=== PATIENT | female | born 1970 | race Caucasian/White ===

== ENCOUNTER → 2016-08-30 | Outpatient (CLI) | payer MEDICARE, MEDICAID ==
[~2016-08-30] MED LIST: ALBUTEROL0.09 MG/A4 IH; ALBUTEROL2.5 MG/3 M IH; AMITRIPTYLINE H25 M1 PO; AMITRIPTYLINE100 MG PO; AMITRIPTYLINE25 M1 PO; AMITRIPTYLINE25 MG PO; ATIVAN 0.50.5 MG/TAB PO; ATORVASTATIN CA40 MG PO; ATROVENT I0.2 MG/1 M IH; ATROVENT INHALE14 GM IH; AZO URINARY PAIN PO; B-1100 MG PO; BACTRIM DS 8001 TA1 PO; BACTRIM DS 8001 TAB PO; CEFTIN500 MG PO; CEPHALEXIN500 M1 PO; CHERATUSSIN AC 15 ML PO; CIPRO 500MG TA500 MG PO; CYCLOBENZAPRINE5 M1 PO; CYMBALTA 60MG60 MG PO; CYMBALTA30 MG PO; CYMBALTA60 MG PO; DEPAKOTE DR500 MG PO; DEPAKOTE500 M1 PO; DIAZEPAM2 MG PO; DOXYCYCLINE 10100 MG PO; EXCEDRIN MIGRA1 EACH PO; FIORICET 325 MG1 TA1 PO; FIORICET 325 MG1 TAB PO; FIORICET1 CAP PO; FIORINAL 50-321 EACH PO; FLOMAX0.4 MG PO; FLONASE NASAL S16 GM NS; GABAPENTIN800 MG PO; HYDROCORTISONE25 MG RC; HYDROXYZINE HCL25 MG PO; HYDROXYZINE10 MG PO; HYOPHEN1 TAB PO; IMITREX 6M6 MG/0.5 M SQ; IMITREX100 MG PO; IMITREX6 MG/0.5 M SC; IMODIUM A-D2 MG PO; IPRATROPIUM BROM3 M1 IH; LEVOTHROID0.075 MG PO; LIPITOR 10MG10 MG PO; LIPITOR 80MG80 MG PO; LIPITOR20 MG PO; MAXALT PO; MEDROL 4MG DOSPA4 MG PO; METRONIDAZOLE500 MG PO; NEURONTIN800 MG/TAB PO; NORCO 325 MG-51 TAB PO; NORCO 325 MG-7.1 TA1 PO; ONDANSETRON ODT8 MG PO; PREDNISONE10 M1 PO; PREDNISONE10 MG PO; PREDNISONE20 M1 PO; PREDNISONE20 MG PO; PROPRANOLOL ER80 MG PO; RELPAX 40MG TAB40 MG; RELPAX 40MG TAB40 MG PO; RELPAX40 MG PO; SEPTRA DS 8001 TAB PO; SKELAXIN800 MG PO; SYMBICORT1 AE3 IH; SYMBICORT1 AE3 INH; SYMBICORT1 AE5 IH; TESSALON PERLE100 M1 PO; TESSALON PERLE100 MG PO; TOPAMAX25 MG PO; TOPAMAX50 MG PO; TRAZODONE HCL100 MG PO; TRAZODONE HYDR100 MG PO; TYLENOL 325MG325 MG PO; TYLENOL W CODEIN1 ML PO; VALIUM2 MG PO; VALIUM5 MG PO; VIBRAMYCIN HYC100 MG PO; VITAMIN D32000 IU PO; WELLBUTRIN SR150 M1 PO; WELLBUTRIN SR200 MG PO; WELLBUTRIN XL150 M2 PO; WELLBUTRIN XL300 M1 PO; WELLBUTRIN100 MG; ZITHROMAX TRI-500 MG PO; ZITHROMAX Z PA250 MG PO; ZOFRAN 4MG T4 MG/TAB PO; ZOFRAN ODT8 MG PO; ZOFRAN4 M1 PO; ZYRTEC1 MG/ML; [UNRECOGNIZED DRUG - OTHER] PO
[2016-08-30 15:16] VITALS: BP 160/77
== END ==
LOC: AMSURD 15:18
DX: G43.909 Migraine, unspecified, not intractable, without status migrainosus (principal)

== ENCOUNTER → 2016-10-13 | Outpatient (CLI) | payer MEDICARE, MEDICAID | LOC: LAB 12:55 | DX: E03.9 Hypothyroidism, unspecified (principal); E78.5 Hyperlipidemia, unspecified ==

== ENCOUNTER 2016-12-20 14:38 | Emergency (ER) | payer MEDICARE ==
[~2016-12-20] VITALS: Ht 154.9 cm; Wt 77.3 kg
[2016-12-20 15:10] VITALS: BP 159/69
== END 2016-12-20 15:57 ==
LOC: ED 14:38
DX: R10.2 Pelvic and perineal pain (principal); F32.9 Major depressive disorder, single episode, unspecified; F41.9 Anxiety disorder, unspecified; G43.909 Migraine, unspecified, not intractable, without status migrainosus; G40.909 Epilepsy, unspecified, not intractable, without status epilepticus

== ENCOUNTER → 2017-01-17 | Outpatient (CLI) | payer MEDICARE ==
[2016-12-20 15:10] VITALS: BP 159/69
== END ==
LOC: LAB 07:34
DX: E03.9 Hypothyroidism, unspecified (principal)

== ENCOUNTER → 2017-02-13 | Outpatient (CLI) | payer MEDICARE | LOC: LAB 07:39 | DX: Z00.00 Encounter for general adult medical examination without abnormal findings (principal); R51 Headache; Z13.228 Encounter for screening for other metabolic disorders ==

== ENCOUNTER 2017-04-25 18:45 | Emergency (ER) | payer MEDICARE ==
[~2017-04-25] VITALS: Ht 154.9 cm; Wt 80.0 kg
[2017-04-25 21:24] VITALS: BP 131/67
== END 2017-04-25 21:16 | disposition home or self-care (01) ==
LOC: ED 18:45
DX: S22.31XA Fracture of one rib, right side, initial encounter for closed fracture (principal); X58.XXXA Exposure to other specified factors, initial encounter; F32.9 Major depressive disorder, single episode, unspecified; F41.9 Anxiety disorder, unspecified; G43.909 Migraine, unspecified, not intractable, without status migrainosus; G40.89 Other seizures; F17.200 Nicotine dependence, unspecified, uncomplicated
CPT/HCPCS: J2360

== ENCOUNTER 2017-04-29 13:54 | Emergency (ER) | payer MEDICARE ==
[~2017-04-29] VITALS: Ht 154.9 cm; Wt 80.0 kg
[2017-04-29 16:42] VITALS: BP 158/69
== END 2017-04-29 16:41 | disposition home or self-care (01) ==
LOC: ED 13:54
DX: R07.89 Other chest pain (principal); R07.1 Chest pain on breathing; G40.89 Other seizures
CPT/HCPCS: J2360

== ENCOUNTER → 2017-06-08 | Outpatient (CLI) | payer OTHER, MEDICARE ==
[2017-06-06 19:11] VITALS: BP 126/74
[~2017-06-08] MED LIST changes: +MIRALAX 255 GM255 GM PO; +ZOFRAN ODT4 MG PO
[2017-06-08 10:21] LABS: LIPASE 265 U/L (23-300)
== END ==
LOC: LAB 09:52
PROVIDERS: Registered Nurse
DX: R10.11 Right upper quadrant pain (principal)

== ENCOUNTER → 2017-06-15 | Outpatient (CLI) | payer OTHER, MEDICARE ==
[2017-06-06 19:11] VITALS: BP 126/74
[2017-06-15 12:40] LABS: HEMATOCRIT 40.2 % (37.0-47.0); HEMOGLOBIN 13.6 g/dL (12.5-16.0); MEAN PLATELET VOLUME 10.3 fl (7.4-10.4); RED BLOOD COUNT 4.43 M/mm3 (4.10-5.30); RED CELL DISTRIBUTION WIDTH 12.8 % (11.5-14.5); WHITE BLOOD COUNT 10.3 K/mm3 (4.8-10.8)
[2017-06-15 12:51] LABS: ALBUMIN 4.5 g/dL (3.5-5.0); BUN/CREATININE RATIO 18.8 (6.0-26.0); CALCIUM 9.9 mg/dL (8.4-10.2); POTASSIUM 3.8 mmol/L (3.6-5.0); TOTAL BILIRUBIN 0.9 mg/dL (0.2-1.3); TOTAL PROTEIN 7.7 g/dL (6.3-8.2)
== END ==
LOC: LAB 12:24
DX: R10.9 Unspecified abdominal pain (principal)

== ENCOUNTER → 2017-08-29 | Outpatient (CLI) | payer OTHER, MEDICARE, MEDICAID ==
[2017-06-06 19:11] VITALS: BP 126/74
== END ==
LOC: LAB 12:08
DX: E03.9 Hypothyroidism, unspecified (principal)

== ENCOUNTER → 2017-10-23 | Outpatient (CLI) | payer OTHER, MEDICARE, MEDICAID ==
[2017-06-06 19:11] VITALS: BP 126/74
== END ==
LOC: LAB 13:17
DX: E03.9 Hypothyroidism, unspecified (principal)

== ENCOUNTER → 2017-11-23 | Outpatient (CLI) | payer OTHER, MEDICARE, MEDICAID ==
[2017-06-06 19:11] VITALS: BP 126/74
== END ==
LOC: RAD 08:35
DX: M25.521 Pain in right elbow (principal); R20.2 Paresthesia of skin

== ENCOUNTER 2017-12-17 12:09 | Emergency (ER) | payer OTHER, MEDICARE, MEDICAID ==
[2017-12-17] MEDS ORDERED: NORVASC 10MG10 MG PO (12:25)
[2017-12-17] MEDS ORDERED: MOBIC15 M1 PO (12:25)
[2017-12-17] MEDS ORDERED: LIPITOR 40MG TA40 MG PO (12:26)
[2017-12-17] MEDS ORDERED: DESYREL 100MG100 MG PO (12:27)
[2017-12-17] MEDS ORDERED: WELLBUTRIN XL150 M2 PO (12:27)
[2017-12-17 12:41] LABS: EOS # 0.2 (0.04-0.40); EOS % 1.9 % (1.0-5.0); HEMATOCRIT 39.1 % (37.0-47.0); HEMOGLOBIN 12.8 g/dL (12.5-16.0); LYMPH# 2.3 (1.50-4.00); MEAN CELL VOLUME 95 fl (78-100); MEAN CORPUSCULAR HEMOGLOBIN 31 pg (27-31); MEAN CORPUSCULAR HGB CONC 33 g/dL (33-37); MEAN PLATELET VOLUME 9.9 fl (7.4-10.4); MONO # 0.7 (0.20-0.80); NEU # 5.3 (1.40-6.50); PLATELET COUNT 243 K/mm3 (130-400); RED BLOOD COUNT 4.11 M/mm3 (4.10-5.30); RED CELL DISTRIBUTION WIDTH 13.3 % (11.5-14.5); WHITE BLOOD COUNT 8.4 K/mm3 (4.8-10.8)
[2017-12-17 12:51] LABS: ALBUMIN 4.7 g/dL (3.5-5.0); BUN/CREATININE RATIO 25.6 (6.0-26.0); CALCIUM 9.4 mg/dL (8.4-10.2); TOTAL BILIRUBIN 0.4 mg/dL (0.2-1.3)
[2017-12-17 12:55] LABS: CKMB ISOENZYME 2.5 ng/mL (0.6-3.5)
[2017-12-17 13:00] LABS: TROPONIN-I < 0.03 ng/mL (0.00-0.06)
[2017-12-17 13:07] LABS: URINE APPEARANCE CLEAR; URINE COLOR YELLOW
[2017-12-17 13:08] LABS: URINE BILIRUBIN NEGATIVE (NEGATIVE); URINE BLOOD TRACE (NEGATIVE); URINE GLUCOSE NEGATIVE (NEGATIVE); URINE KETONE NEGATIVE (NEGATIVE); URINE LEUKOCYTE ESTERASE NEGATIVE (NEGATIVE); URINE NITRATE NEGATIVE (NEGATIVE); URINE PROTEIN(semi-quant) NEGATIVE (NEGATIVE); URINE UROBILINOGEN NORMAL (NORMAL); URINE WBC 0-1 /hpf (0-3)
[2017-12-17 16:05] VITALS: BP 159/80
== END 2017-12-17 16:36 | disposition short-term general hospital (02) ==
LOC: ED 12:09
PROVIDERS: Nurse Practitioner Primary Care
DX: R51 Headache (principal); G93.40 Encephalopathy, unspecified; R11.2 Nausea with vomiting, unspecified; M43.6 Torticollis; M54.2 Cervicalgia; R61 Generalized hyperhidrosis; R42 Dizziness and giddiness; F17.200 Nicotine dependence, unspecified, uncomplicated
CPT/HCPCS: J1200; J2270; J2405; J7120

== ENCOUNTER 2018-01-25 11:30 | Outpatient (RCR) | payer OTHER, MEDICARE, MEDICAID ==
[~2018-01-25 11:30] MED LIST changes: +DESYREL 100MG100 MG PO; +LIPITOR 40MG TA40 MG PO; +MOBIC15 M1 PO; +NORVASC 10MG10 MG PO
== END 2018-01-25 12:00 | disposition home or self-care (01) ==
LOC: PT 11:30
DX: M25.521 Pain in right elbow (principal)
CPT/HCPCS: G8978-GP; G8979-GP

== ENCOUNTER → 2018-11-29 | Outpatient (CLI) | payer MEDICARE ==
[2018-11-29 11:18] LABS: EOS # 0.1 (0.04-0.40); HEMATOCRIT 37.9 % (37.0-47.0); HEMOGLOBIN 12.2 g/dL (12.5-16.0); LYMPH# 2.3 (1.50-4.00); MEAN CELL VOLUME 94 fl (78-100); MEAN CORPUSCULAR HEMOGLOBIN 30 pg (27-31); MEAN CORPUSCULAR HGB CONC 32 g/dL (33-37); MEAN PLATELET VOLUME 10.8 fl (7.4-10.4); MONO # 0.5 (0.20-0.80); NEU # 6.1 (1.40-6.50); PLATELET COUNT 210 K/mm3 (130-400); RED BLOOD COUNT 4.04 M/mm3 (4.10-5.30); RED CELL DISTRIBUTION WIDTH 13.4 % (11.5-14.5)
[2018-11-29 11:39] LABS: ALBUMIN 4.7 g/dL (3.5-5.0); CALCIUM 9.5 mg/dL (8.4-10.2); POTASSIUM 4.2 mmol/L (3.6-5.0); TOTAL BILIRUBIN 0.5 mg/dL (0.2-1.3); TOTAL PROTEIN 7.5 g/dL (6.3-8.2)
[2018-11-29 12:25] LABS: URINE APPEARANCE CLEAR; URINE BILIRUBIN NEGATIVE (NEGATIVE); URINE BLOOD TRACE (NEGATIVE); URINE COLOR YELLOW; URINE GLUCOSE NEGATIVE (NEGATIVE); URINE KETONE NEGATIVE (NEGATIVE); URINE LEUKOCYTE ESTERASE NEGATIVE (NEGATIVE); URINE NITRATE NEGATIVE (NEGATIVE); URINE PROTEIN(semi-quant) TRACE mg/dL (NEGATIVE); URINE UROBILINOGEN NORMAL (NORMAL); URINE WBC 0-1 /hpf (0-3)
[2018-11-29 22:46] LABS: CREATININE OTHER SOURCE 54 mg/dL (())
== END ==
LOC: LAB 10:50
PROVIDERS: Registered Nurse
DX: Z13.0 Encounter for screening for diseases of the blood and blood-forming organs and certain disorders involving the immune mechanism (principal); Z12.11 Encounter for screening for malignant neoplasm of colon; Z13.228 Encounter for screening for other metabolic disorders; E78.5 Hyperlipidemia, unspecified; I10 Essential (primary) hypertension; Z86.39 Personal history of other endocrine, nutritional and metabolic disease

== ENCOUNTER → 2018-12-03 | Outpatient (CLI) | payer MEDICARE | LOC: MAMMO 09:01 | DX: Z12.31 Encounter for screening mammogram for malignant neoplasm of breast (principal); N64.89 Other specified disorders of breast ==

== ENCOUNTER → 2018-12-16 | Outpatient (CLI) | payer MEDICARE | LOC: MAMMO 07:34 | DX: N64.89 Other specified disorders of breast (principal) ==

== ENCOUNTER → 2018-12-23 | Outpatient (CLI) | payer MEDICARE | LOC: LAB 10:54 | DX: Z12.11 Encounter for screening for malignant neoplasm of colon (principal); Z13.0 Encounter for screening for diseases of the blood and blood-forming organs and certain disorders involving the immune mechanism; Z13.228 Encounter for screening for other metabolic disorders; I10 Essential (primary) hypertension; E78.5 Hyperlipidemia, unspecified; Z86.39 Personal history of other endocrine, nutritional and metabolic disease ==

== ENCOUNTER → 2018-12-26 | Outpatient (CLI) | payer MEDICARE | LOC: LAB 09:44 | DX: Z12.11 Encounter for screening for malignant neoplasm of colon (principal); Z13.0 Encounter for screening for diseases of the blood and blood-forming organs and certain disorders involving the immune mechanism; Z13.228 Encounter for screening for other metabolic disorders; I10 Essential (primary) hypertension; E78.5 Hyperlipidemia, unspecified; Z86.39 Personal history of other endocrine, nutritional and metabolic disease ==

== ENCOUNTER → 2019-03-15 | Outpatient (CLI) | payer MEDICARE | LOC: RAD 09:26 | DX: S99.921A Unspecified injury of right foot, initial encounter (principal); W01.0XXA Fall on same level from slipping, tripping and stumbling without subsequent striking against object, initial encounter ==

== ENCOUNTER → 2019-03-20 | Outpatient (CLI) | payer MEDICARE ==
[2019-03-20 16:42] LABS: CLUE CELLS PRESENT (Not Observd)
== END ==
LOC: LAB 14:38
PROVIDERS: Physician Assistant
DX: N89.8 Other specified noninflammatory disorders of vagina (principal)
CPT/HCPCS: Q0111

== ENCOUNTER 2019-05-23 13:20 | Emergency (ER) | payer MEDICARE ==
[~2019-05-23] VITALS: Ht 154.9 cm; Wt 81.8 kg
[~2019-05-23 13:20] MED LIST changes: +ASPIRIN 81M81 MG/TA2 PO; +BACTRIM DS TAB1 EACH PO; +DULOXETINE60 MG PO; +METOPROLOL SUCC25 M1 PO
[2019-05-23] MEDS ORDERED: NITROGLYCERIN0.4 M1 SL (13:31)
[2019-05-23] MEDS ORDERED: PRILOSEC 20MG20 MG PO (13:31)
[2019-05-23] MEDS ORDERED: MECLIZINE PO (14:54)
[2019-05-23] MEDS ORDERED: ZOFRAN4 M2 PO (14:54)
[2019-05-23 15:06] VITALS: BP 139/62
== END 2019-05-23 15:00 | disposition home or self-care (01) ==
LOC: ED 13:20
DX: R42 Dizziness and giddiness (principal); F41.9 Anxiety disorder, unspecified; F32.9 Major depressive disorder, single episode, unspecified; E07.9 Disorder of thyroid, unspecified; G43.909 Migraine, unspecified, not intractable, without status migrainosus; F17.210 Nicotine dependence, cigarettes, uncomplicated; Z86.69 Personal history of other diseases of the nervous system and sense organs; Z90.710 Acquired absence of both cervix and uterus; Z79.82 Long term (current) use of aspirin
CPT/HCPCS: J1885; J2550

== ENCOUNTER 2019-08-01 12:08 | Emergency (ER) | payer MEDICARE ==
[~2019-08-01 12:08] MED LIST changes: -ASPIRIN 81M81 MG/TA2 PO; +ASPIRIN E.C. 8181 MG PO; +MECLIZINE PO; +NITROGLYCERIN0.4 M1 SL; -NORVASC 10MG10 MG PO; +NORVASC 5MG5 MG/TAB PO; +PRILOSEC 20MG20 MG PO; +ZOFRAN4 M2 PO
[2019-08-01 13:28] LABS: EOS # 0.1 (0.04-0.40); EOS % 0.7 % (1.0-5.0); HEMATOCRIT 37.7 % (37.0-47.0); HEMOGLOBIN 12.4 g/dL (12.5-16.0); LYMPH# 1.6 (1.50-4.00); MEAN CELL VOLUME 93 fl (78-100); MEAN CORPUSCULAR HEMOGLOBIN 31 pg (27-31); MEAN CORPUSCULAR HGB CONC 33 g/dL (33-37); MEAN PLATELET VOLUME 10.1 fl (7.4-10.4); MONO # 0.7 (0.20-0.80); PLATELET COUNT 271 K/mm3 (130-400); RED BLOOD COUNT 4.04 M/mm3 (4.10-5.30); RED CELL DISTRIBUTION WIDTH 13.3 % (11.5-14.5); WHITE BLOOD COUNT 10.5 K/mm3 (4.8-10.8)
[2019-08-01 13:30] LABS: POTASSIUM 3.9 mmol/L (3.5-5.1)
[2019-08-01 13:32] LABS: CALCIUM 9.5 mg/dL (8.3-10.5)
[2019-08-01] MEDS ORDERED: GNC L-ARGININE500 MG PO (13:49)
[2019-08-01] MEDS ORDERED: L-LYSINE500 M2 PO (13:49)
[2019-08-01 14:32] LABS: ERYTHROCYTE SEDIMENTATION RATE 10 mm/hr (0-20)
[2019-08-01] MEDS ORDERED: MECLIZINE PO (18:36)
[2019-08-01] MEDS ORDERED: ZOFRAN ODT4 MG PO (18:36)
[2019-08-01] MEDS ORDERED: METOCLOPRAMIDE10 M5 PO (18:36)
[2019-08-01 19:06] VITALS: BP 153/78
== END 2019-08-01 19:21 | disposition home or self-care (01) ==
LOC: ED 12:08
PROVIDERS: Family Medicine
DX: R11.2 Nausea with vomiting, unspecified (principal); R42 Dizziness and giddiness; I10 Essential (primary) hypertension; E78.5 Hyperlipidemia, unspecified; G47.30 Sleep apnea, unspecified; G43.909 Migraine, unspecified, not intractable, without status migrainosus; F31.9 Bipolar disorder, unspecified; E03.9 Hypothyroidism, unspecified; Z90.49 Acquired absence of other specified parts of digestive tract; Z90.710 Acquired absence of both cervix and uterus; Z90.89 Acquired absence of other organs; Z79.82 Long term (current) use of aspirin
CPT/HCPCS: J2765; J7030

== ENCOUNTER → 2019-08-15 | Outpatient (CLI) | payer MEDICARE ==
[2019-08-01 19:06] VITALS: BP 153/78
[~2019-08-15] MED LIST changes: +GNC L-ARGININE500 MG PO; +L-LYSINE500 M2 PO; +METOCLOPRAMIDE10 M5 PO
== END ==
LOC: RAD 09:46
DX: E78.5 Hyperlipidemia, unspecified (principal); I10 Essential (primary) hypertension

== ENCOUNTER → 2019-09-11 | Outpatient (CLI) | payer MEDICARE | LOC: RAD 12:00 | DX: H93.A3 Pulsatile tinnitus, bilateral (principal) ==

== ENCOUNTER 2020-05-25 20:36 | Emergency (ER) | payer MEDICARE, MEDICAID ==
[~2020-05-25] VITALS: Ht 160 cm; Wt 88.1 kg
[2020-05-25] MEDS ORDERED: CEPHALEXIN500 M1 PO (21:19)
[2020-05-25] MEDS ORDERED: ZYRTEC ALLERGY10 MG PO (21:20)
[2020-05-25] MEDS ORDERED: BACTRIM DS TAB1 EACH PO (21:21)
[2020-05-25] MEDS ORDERED: HYDROCODONE BIT1 T45 PO (21:22)
[2020-05-25 22:21] LABS: EOS # 0.1 (0.04-0.40); EOS % 0.4 % (1.0-5.0); HEMOGLOBIN 11.7 g/dL (12.5-16.0); LYMPH# 2.2 (1.50-4.00); MEAN CELL VOLUME 95 fl (78-100); MEAN CORPUSCULAR HEMOGLOBIN 31 pg (27-31); MEAN CORPUSCULAR HGB CONC 33 g/dL (33-37); MEAN PLATELET VOLUME 9.5 fl (7.4-10.4); MONO # 1.1 (0.20-0.80); PLATELET COUNT 230 K/mm3 (130-400); RED BLOOD COUNT 3.81 M/mm3 (4.10-5.30); WHITE BLOOD COUNT 14.3 K/mm3 (4.8-10.8)
[2020-05-25 22:22] LABS: ALBUMIN 4.5 g/dL (3.5-5.0); POTASSIUM 3.5 mmol/L (3.5-5.1)
[2020-05-25 22:23] LABS: CALCIUM 9.4 mg/dL (8.3-10.5); NEU # 10.8 (1.40-6.50)
[2020-05-25 22:25] LABS: TOTAL PROTEIN 7.2 g/dL (6.4-8.3)
[2020-05-25 22:27] LABS: TOTAL BILIRUBIN 0.5 mg/dL (0.2-1.2)
[2020-05-25 23:26] LABS: ERYTHROCYTE SEDIMENTATION RATE 40 mm/hr (0-30)
[2020-05-26] MEDS ORDERED: MORGIDOX 1X100100 MG PO (00:10)
[2020-05-26 01:25] VITALS: BP 122/64
== END 2020-05-26 01:25 | disposition home or self-care (01) ==
LOC: ED 20:36
PROVIDERS: Nurse Practitioner Family
DX: L03.311 Cellulitis of abdominal wall (principal); L02.211 Cutaneous abscess of abdominal wall; F32.9 Major depressive disorder, single episode, unspecified; F41.9 Anxiety disorder, unspecified; G43.909 Migraine, unspecified, not intractable, without status migrainosus; G89.29 Other chronic pain; Z87.891 Personal history of nicotine dependence; Z79.82 Long term (current) use of aspirin
CPT/HCPCS: 90715; J1170; J2270; J2405; J7030

== ENCOUNTER 2020-05-26 15:26 | Inpatient (IN) | payer MEDICARE, MEDICAID ==
[~2020-05-26] VITALS: Ht 160 cm; Wt 86.2 kg
[~2020-05-26 15:26] MED LIST changes: +HYDROCODONE BIT1 T45 PO; +MORGIDOX 1X100100 MG PO; +ZYRTEC ALLERGY10 MG PO
[2020-05-26 16:07] LABS: HEMATOCRIT 35.4 % (37.0-47.0); HEMOGLOBIN 11.3 g/dL (12.5-16.0); MEAN CELL VOLUME 96 fl (78-100); MEAN CORPUSCULAR HEMOGLOBIN 31 pg (27-31); MEAN CORPUSCULAR HGB CONC 32 g/dL (33-37); MEAN PLATELET VOLUME 9.8 fl (7.4-10.4); PLATELET COUNT 216 K/mm3 (130-400); RED BLOOD COUNT 3.69 M/mm3 (4.10-5.30); WHITE BLOOD COUNT 17.3 K/mm3 (4.8-10.8)
[2020-05-26 16:12] LABS: LYMPHOCYTE 11 % (20-51); MONOCYTE 6 % (3-10); NEUTROPHILS 83 % (42-75)
[2020-05-26 16:15] LABS: ALBUMIN 4.2 g/dL (3.5-5.0); POTASSIUM 3.8 mmol/L (3.5-5.1)
[2020-05-26 16:17] LABS: CALCIUM 9.3 mg/dL (8.3-10.5)
[2020-05-26 16:18] LABS: TOTAL PROTEIN 6.9 g/dL (6.4-8.3)
[2020-05-26 16:20] LABS: TOTAL BILIRUBIN 0.9 mg/dL (0.2-1.2)
[2020-05-26 18:14] VITALS: BP 116/66
[2020-05-26 18:22] VITALS: BP 116/66
[2020-05-26 19:26] VITALS: BP 116/66
[2020-05-26 19:36] VITALS: BP 116/66
[2020-05-26 21:56] VITALS: BP 123/70
[2020-05-26 22:00] VITALS: BP 123/70
[2020-05-27 02:30] VITALS: BP 98/56
[2020-05-27 05:45] VITALS: BP 121/50
[2020-05-27 07:35] LABS: HEMATOCRIT 33.7 % (37.0-47.0); HEMOGLOBIN 10.7 g/dL (12.5-16.0); MEAN CELL VOLUME 96 fl (78-100); MEAN CORPUSCULAR HEMOGLOBIN 31 pg (27-31); MEAN CORPUSCULAR HGB CONC 32 g/dL (33-37); MEAN PLATELET VOLUME 9.9 fl (7.4-10.4); PLATELET COUNT 183 K/mm3 (130-400); RED BLOOD COUNT 3.51 M/mm3 (4.10-5.30); WHITE BLOOD COUNT 13.2 K/mm3 (4.8-10.8)
[2020-05-27 07:43] LABS: POTASSIUM 3.7 mmol/L (3.5-5.1)
[2020-05-27 07:45] LABS: CALCIUM 8.9 mg/dL (8.3-10.5)
[2020-05-27 08:00] LABS: LYMPHOCYTE 16 % (20-51); NEUTROPHILS 78 % (42-75)
[2020-05-27 08:01] LABS: MONOCYTE 4 % (3-10)
[2020-05-27 09:57] VITALS: BP 109/67
[2020-05-27 13:36] VITALS: BP 105/54
[2020-05-27 17:17] VITALS: BP 125/64
[2020-05-27 21:38] VITALS: BP 108/58
[2020-05-28 02:00] VITALS: BP 101/66
[2020-05-28 05:19] VITALS: BP 113/63
[2020-05-28 08:16] LABS: EOS # 0.2 (0.04-0.40); EOS % 1.7 % (1.0-5.0); HEMATOCRIT 27.3 % (37.0-47.0); HEMOGLOBIN 8.7 g/dL (12.5-16.0); LYMPH# 1.9 (1.50-4.00); MEAN CELL VOLUME 95 fl (78-100); MEAN CORPUSCULAR HEMOGLOBIN 30 pg (27-31); MEAN CORPUSCULAR HGB CONC 32 g/dL (33-37); MEAN PLATELET VOLUME 11.4 fl (7.4-10.4); MONO # 0.7 (0.20-0.80); PLATELET COUNT 179 K/mm3 (130-400); RED BLOOD COUNT 2.87 M/mm3 (4.10-5.30); RED CELL DISTRIBUTION WIDTH 12.6 % (11.5-14.5); WHITE BLOOD COUNT 9.8 K/mm3 (4.8-10.8)
[2020-05-28 08:23] LABS: POTASSIUM 3.8 mmol/L (3.5-5.1)
[2020-05-28 08:25] LABS: CALCIUM 8.9 mg/dL (8.3-10.5)
[2020-05-28 09:53] VITALS: BP 126/84
[2020-05-28] MEDS ORDERED: ACETAMINOPHEN-O1 TAB PO (13:08)
[2020-05-28] MEDS ORDERED: DOCUSATE SOD100 MG PO (13:09)
[2020-05-28] MEDS ORDERED: BACTRIM DS TAB1 EACH PO (13:10)
[2020-05-28] MEDS ORDERED: ZOFRAN ODT4 MG PO (13:22)
== END 2020-05-28 14:30 | disposition home or self-care (01) | DRG 603 ==
LOC: ED 15:26 → MED/SURG 17:49
PROVIDERS: ADMIT Physician Assistant
DX: L03.317 Cellulitis of buttock (principal); F32.9 Major depressive disorder, single episode, unspecified; I10 Essential (primary) hypertension; G47.00 Insomnia, unspecified; B95.62 Methicillin resistant Staphylococcus aureus infection as the cause of diseases classified elsewhere; T63.301A Toxic effect of unspecified spider venom, accidental (unintentional), initial encounter; Y92.008 Other place in unspecified non-institutional (private) residence as the place of occurrence of the external cause; Z79.82 Long term (current) use of aspirin; Z90.710 Acquired absence of both cervix and uterus; Z87.891 Personal history of nicotine dependence; Z88.0 Allergy status to penicillin; Z88.1 Allergy status to other antibiotic agents
CPT/HCPCS: J1650; J2270; J2405; J3010; J3370; J7030; J7050; Q9967

== ENCOUNTER 2020-08-02 14:32 | Emergency (ER) | payer MEDICARE, MEDICAID ==
[~2020-08-02 14:32] MED LIST changes: +ACETAMINOPHEN-O1 TAB PO; +DOCUSATE SOD100 MG PO
[2020-08-02 15:33] LABS: EOS # 0.1 (0.04-0.40); EOS % 1.6 % (1.0-5.0); HEMATOCRIT 38.4 % (37.0-47.0); HEMOGLOBIN 12.3 g/dL (12.5-16.0); LYMPH# 3.2 (1.50-4.00); MEAN CELL VOLUME 93 fl (78-100); MEAN CORPUSCULAR HEMOGLOBIN 30 pg (27-31); MEAN CORPUSCULAR HGB CONC 32 g/dL (33-37); MEAN PLATELET VOLUME 9.8 fl (7.4-10.4); MONO # 0.7 (0.20-0.80); NEU # 4.2 (1.40-6.50); PLATELET COUNT 253 K/mm3 (130-400); RED BLOOD COUNT 4.12 M/mm3 (4.10-5.30); RED CELL DISTRIBUTION WIDTH 13.1 % (11.5-14.5); WHITE BLOOD COUNT 8.2 K/mm3 (4.8-10.8)
[2020-08-02 15:45] LABS: ALBUMIN 4.4 g/dL (3.5-5.0); POTASSIUM 4.2 mmol/L (3.5-5.1); SODIUM 141 mmol/L (136-145)
[2020-08-02 15:46] LABS: CALCIUM 9.4 mg/dL (8.3-10.5)
[2020-08-02 15:47] LABS: GLUCOSE 94 mg/dL (65-105)
[2020-08-02 15:48] LABS: TOTAL PROTEIN 6.8 g/dL (6.4-8.3)
[2020-08-02 15:49] LABS: CARBON DIOXIDE 29 mmol/L (22-29); TOTAL BILIRUBIN 0.3 mg/dL (0.2-1.2)
[2020-08-02 15:53] LABS: AST-SGOT 18 U/L (5-34)
[2020-08-02 15:54] LABS: ALT/SGPT 26 U/L (0-55)
[2020-08-02 16:22] LABS: ERYTHROCYTE SEDIMENTATION RATE 11 mm/hr (0-30)
[2020-08-02 17:29] LABS: D-DIMER 0.07 mg/L FEU (0.15-0.50)
[2020-08-02] MEDS ORDERED: TESSALON PERLE100 M1 PO (17:47)
[2020-08-02 17:58] VITALS: BP 172/82
== END 2020-08-02 17:52 | disposition home or self-care (01) ==
LOC: ED 14:32
PROVIDERS: Physician Assistant
DX: R07.81 Pleurodynia (principal); M79.10 Myalgia, unspecified site; R53.81 Other malaise; R05 Cough; E78.5 Hyperlipidemia, unspecified; F31.9 Bipolar disorder, unspecified; F41.9 Anxiety disorder, unspecified; F17.210 Nicotine dependence, cigarettes, uncomplicated; Z20.828 Contact with and (suspected) exposure to other viral communicable diseases; Z88.0 Allergy status to penicillin; Z88.1 Allergy status to other antibiotic agents; Z79.82 Long term (current) use of aspirin

== ENCOUNTER 2020-11-29 09:07 | Emergency (ER) | payer MEDICARE, MEDICAID ==
[2020-11-29 09:15] VITALS: BP 160/85
[2020-11-29 09:57] LABS: EOS # 0.1 (0.04-0.40); EOS % 1.3 % (1.0-5.0); HEMATOCRIT 38.5 % (37.0-47.0); HEMOGLOBIN 12.3 g/dL (12.5-16.0); MEAN CELL VOLUME 96 fl (78-100); MEAN CORPUSCULAR HEMOGLOBIN 31 pg (27-31); MEAN CORPUSCULAR HGB CONC 32 g/dL (33-37); MEAN PLATELET VOLUME 10.1 fl (7.4-10.4); MONO # 0.4 (0.20-0.80); PLATELET COUNT 252 K/mm3 (130-400); RED BLOOD COUNT 4.01 M/mm3 (4.10-5.30); RED CELL DISTRIBUTION WIDTH 13.6 % (11.5-14.5); WHITE BLOOD COUNT 8.6 K/mm3 (4.8-10.8)
[2020-11-29 10:05] LABS: URINE APPEARANCE CLEAR; URINE BILIRUBIN NEGATIVE (NEGATIVE); URINE BLOOD 250 ery/uL (NEGATIVE); URINE COLOR YELLOW; URINE GLUCOSE NEGATIVE (NEGATIVE); URINE KETONE NEGATIVE (NEGATIVE); URINE LEUKOCYTE ESTERASE NEGATIVE (NEGATIVE); URINE NITRATE NEGATIVE (NEGATIVE); URINE PROTEIN(semi-quant) TRACE mg/dL (NEGATIVE); URINE UROBILINOGEN NORMAL (NORMAL); URINE WBC 0-1 /hpf (0-3)
[2020-11-29 10:06] LABS: ALBUMIN 4.4 g/dL (3.5-5.0); POTASSIUM 3.7 mmol/L (3.5-5.1)
[2020-11-29 10:07] LABS: SODIUM 143 mmol/L (136-145)
[2020-11-29 10:08] LABS: CALCIUM 9.1 mg/dL (8.3-10.5)
[2020-11-29 10:09] LABS: GLUCOSE 122 mg/dL (65-105); TOTAL PROTEIN 7.1 g/dL (6.4-8.3)
[2020-11-29 10:10] LABS: CARBON DIOXIDE 22 mmol/L (22-29)
[2020-11-29 10:11] LABS: TOTAL BILIRUBIN 0.3 mg/dL (0.2-1.2)
[2020-11-29 10:14] LABS: AST-SGOT 16 U/L (5-34)
[2020-11-29 10:15] LABS: ALT/SGPT 21 U/L (0-55)
[2020-11-29 10:16] LABS: LIPASE 50 U/L (8-78)
[2020-11-29 10:25] LABS: TROPONIN-I < 0.03 ng/mL (<0.030)
== END 2020-11-29 10:38 | disposition home or self-care (01) ==
LOC: ED 09:07
PROVIDERS: Nurse Practitioner
DX: R09.1 Pleurisy (principal); F31.9 Bipolar disorder, unspecified; F41.9 Anxiety disorder, unspecified; Z87.891 Personal history of nicotine dependence; Z79.82 Long term (current) use of aspirin

== ENCOUNTER → 2020-11-29 | Outpatient (CLI) | payer MEDICARE, MEDICAID | LOC: LAB 08:17 | DX: R05 Cough (principal); Z20.822 Contact with and (suspected) exposure to COVID-19 ==

== ENCOUNTER → 2021-03-24 | Outpatient (CLI) | payer MEDICARE, MEDICAID | LOC: RAD 08:54 | DX: K76.0 Fatty (change of) liver, not elsewhere classified (principal) ==

== ENCOUNTER 2021-07-10 11:49 | Emergency (ER) | payer MEDICARE, MEDICAID ==
[~2021-07-10] VITALS: Ht 160 cm; Wt 81.6 kg
[2021-07-10] MEDS ORDERED: AMLODIPINE BESYL5 MG PO (12:33)
[2021-07-10] MEDS ORDERED: PROAIR HFA0.09 MG/AC IH (12:33)
[2021-07-10] MEDS ORDERED: NEURONTIN300 MG/CAP PO (12:33)
[2021-07-10 14:06] LABS: BASO # 0.03 K/mm3 (0.02-0.10); EOS # 0.09 K/mm3 (0.04-0.40); EOS % 0.8 % (1.0-5.0); HEMATOCRIT 42.3 % (37.0-47.0); LYMPH# 3.21 K/mm3 (1.50-4.00); MEAN CELL VOLUME 95 fl (78-100); MEAN CORPUSCULAR HEMOGLOBIN 32 pg (27-31); MEAN CORPUSCULAR HGB CONC 33 g/dL (33-37); NEU # 7.81 K/mm3 (1.40-6.50); PLATELET COUNT 268 K/mm3 (130-400); RED BLOOD COUNT 4.45 M/mm3 (4.10-5.30); RED CELL DISTRIBUTION WIDTH 12.9 % (11.5-14.5); WHITE BLOOD COUNT 11.8 K/mm3 (4.8-10.8)
[2021-07-10 14:15] LABS: POTASSIUM 3.9 mmol/L (3.5-5.1)
[2021-07-10 14:17] LABS: CALCIUM 9.7 mg/dL (8.3-10.5)
[2021-07-10 14:18] LABS: TOTAL PROTEIN 8.1 g/dL (6.4-8.3)
[2021-07-10 14:20] LABS: TOTAL BILIRUBIN 0.5 mg/dL (0.2-1.2)
[2021-07-10 14:40] LABS: PH-URINE 5.5 (5.0 - 8.0); URINE APPEARANCE CLEAR; URINE BILIRUBIN NEGATIVE (NEGATIVE); URINE BLOOD 50 ery/uL (NEGATIVE); URINE COLOR YELLOW; URINE GLUCOSE NEGATIVE (NEGATIVE); URINE KETONE NEGATIVE (NEGATIVE); URINE LEUKOCYTE ESTERASE NEGATIVE (NEGATIVE); URINE NITRATE NEGATIVE (NEGATIVE); URINE PROTEIN(semi-quant) TRACE mg/dL (NEGATIVE); URINE UROBILINOGEN NORMAL (NORMAL); URINE WBC 0-1 /hpf (0-3)
[2021-07-10 16:32] VITALS: BP 140/78
== END 2021-07-10 16:25 | disposition home or self-care (01) ==
LOC: ED 11:49
PROVIDERS: Family Medicine
DX: K76.0 Fatty (change of) liver, not elsewhere classified (principal); I10 Essential (primary) hypertension; J45.909 Unspecified asthma, uncomplicated; F41.9 Anxiety disorder, unspecified; F32.A Depression, unspecified; Z90.49 Acquired absence of other specified parts of digestive tract; Z90.710 Acquired absence of both cervix and uterus; Z87.891 Personal history of nicotine dependence; Z79.899 Other long term (current) drug therapy
CPT/HCPCS: J1885; J2060; J2270; Q9967

== ENCOUNTER → 2021-07-15 | Outpatient (CLI) | payer MEDICARE, MEDICAID ==
[~2021-07-15] MED LIST changes: +AMLODIPINE BESYL5 MG PO; +NEURONTIN300 MG/CAP PO; +PROAIR HFA0.09 MG/AC IH
== END ==
LOC: RAD 09:55
DX: D17.1 Benign lipomatous neoplasm of skin and subcutaneous tissue of trunk (principal)

== ENCOUNTER 2021-12-15 11:47 | Emergency (ER) | payer MEDICARE, MEDICAID ==
[2021-12-15 12:00] VITALS: BP 165/93
== END 2021-12-15 13:51 | disposition home or self-care (01) ==
LOC: ED 11:47
DX: M54.32 Sciatica, left side (principal); Z87.891 Personal history of nicotine dependence; Z28.311 Partially vaccinated for COVID-19
CPT/HCPCS: J1885; J2360

== ENCOUNTER → 2022-03-22 | Outpatient (CLI) | payer MEDICARE, MEDICAID | LOC: RAD 11:55 | DX: R05.1 Acute cough (principal) ==

== ENCOUNTER 2022-05-31 09:04 | Outpatient (RCR) | payer MEDICARE, MEDICAID | END 2022-06-05 | LOC: PT | DX: M54.32 Sciatica, left side (principal); G89.29 Other chronic pain ==

== ENCOUNTER 2022-06-07 09:00 | Outpatient (RCR) | payer MEDICARE, MEDICAID | END 2022-07-05 | LOC: PT | DX: M54.32 Sciatica, left side (principal) ==

== ENCOUNTER → 2022-07-11 | Outpatient (CLI) | payer MEDICARE, MEDICAID | LOC: RAD 15:02 | DX: R05.3 Chronic cough (principal); R60.0 Localized edema ==

== ENCOUNTER 2023-12-12 08:00 | Outpatient (RCR) | payer MEDICARE | END 2024-01-04 | LOC: PT | DX: M54.16 Radiculopathy, lumbar region (principal) ==

== ENCOUNTER → 2024-02-20 | Outpatient (CLI) | payer MEDICARE | LOC: RAD 10:53 | DX: Z01.818 Encounter for other preprocedural examination (principal); Z87.81 Personal history of (healed) traumatic fracture ==

== ENCOUNTER 2024-04-20 08:13 | Emergency (ER) | payer MEDICARE ==
[~2024-04-20] VITALS: Ht 3 cm; Wt 72.7 kg
[2024-04-20] MEDS ORDERED: Orphenadrine 60 MG/2ML AMP IM ONE (08:45)
[2024-04-20] MEDS ORDERED: Lidocaine 4% Topical Patch TP ONE (08:45)
[2024-04-20] MEDS ORDERED: predniSONE 10 MG TAB PO ONE (08:45)
[2024-04-20] MEDS ORDERED: PREDNISONE10 MG PO (10:01)
[2024-04-20 10:55] VITALS: BP 115/76
== END 2024-04-20 11:07 | disposition home or self-care (01) ==
LOC: ED 08:13
DX: M25.551 Pain in right hip (principal); Z87.891 Personal history of nicotine dependence
CPT/HCPCS: J2360; J7512

== ENCOUNTER 2024-05-07 13:33 | Outpatient (RCR) | payer MEDICARE | END 2024-06-05 | disposition home or self-care (01) | LOC: PT | DX: M79.604 Pain in right leg (principal) ==